=== PATIENT | female | born 2005 | race African-American/Black ===

== ENCOUNTER 2024-02-01 14:31 | Emergency (ER) | payer SELFPAY ==
[2024-02-01 15:27] LABS: #Basophils 0.04 10x3/uL (0.0-0.2); %Basophils 0.3 % (0.0-1.0); %Eosinophils 0.2 % (0.0-10.0); %Lymphocytes 20.7 % (28.0-48.0); %Monocytes 8.2 % (0.0-4.0); Hematocrit 24.4 % (36.0-47.0); Hemoglobin 6.8 g/dL (12.0-16.0); Mean Corpuscular HGB CONC 27.9 g/dL (32.0-36.0); Mean Corpuscular Hemoglobin 18.4 pg (25.0-35.0); Mean Corpuscular Volume 65.9 fL (78.0-98.0); Platelet Count 127 10x3/uL (130-400); RBC Distribution Width 28.1 % (11.5-14.5)
[2024-02-01 15:29] LABS: Globulin 4.6 g/dL (2.4-3.5)
[2024-02-01 15:31] LABS: Anion Gap 9 mmol/L (10-20)
[2024-02-01 15:33] LABS: ALT (SGPT) 70 U/L (8-55); AST (SGOT) 66 U/L (5-30); Albumin 3.8 g/dL (3.5-5.0); Alkaline Phosphatase 80 U/L (40-100); BUN (Urea Nitrogen) 6 mg/dL (8.4-21.0); Bilirubin, Total 0.4 mg/dL (0.2-1.2); Calc. Creatinine Clearance 0 mL/min (70-130); Calcium 9.6 mg/dL (7.8-10.44); Carbon Dioxide 23 mmol/L (22-29); Chloride 107 mmol/L (98-107); Estimated GFR 121; Glucose 109 mg/dL (70-105); Potassium 3.3 mmol/L (3.5-5.1); Protein, Total 8.4 g/dL (6.0-8.3); Sodium 136 mmol/L (136-145)
[2024-02-01 18:02] LABS: Anisocytosis SLIGHT = 6-15 cells (100X) (0-5/hpf); Hypochromia SLIGHT = 6-15 cells (100X) (0-5/hpf); Microcytosis SLIGHT = 6-15 cells (100X) (0-5/hpf); Ovalocytes SLIGHT = 2-5 cells (100X) (0-1/hpf); Platelet Adequacy Comment Appears Decreased; Polychromasia MODERATE = 3-4 cells (100X) (0-2/hpf)
== END 2024-02-01 16:12 | disposition home or self-care (01) ==
LOC: ERS 14:31
DX: N92.0 Excessive and frequent menstruation with regular cycle (principal); D64.9 Anemia, unspecified; R01.1 Cardiac murmur, unspecified
CPT/HCPCS: 36415; 71045; 80053; 85025; 86850; 86900; 86901; 93005